=== PATIENT | female | born 1945 | race Caucasian/White ===

== ENCOUNTER 2018-06-27 17:57 | Outpatient (REF) | payer MEDICARE, SELFPAY ==
[2018-06-27 21:55] LABS: Anion Gap 8.1 mmol/L (3-11); BUN 19 mg/dL (7-18); CO2 27.9 mmol/L (21.0-32.0); CREATININE 1.09 mg/dL (0.55-1.02); Calcium 9.1 mg/dL (8.5-10.1); Chloride 105 mmol/L (98-107); Cholesterol 293 mg/dL (50-200); Estimated GFR 49.48 (mL/min/1.73m2); Glucose 92 mg/dL (70-100); HDL Cholesterol 44 mg/dL (40-60); LDL CHOLESTEROL 201 mg/dL (<100); Sodium 141 mmol/L (136-145); Triglyceride 256 mg/dL (30-150)
== END 2018-06-27 18:17 ==
LOC: NCHCN 17:57
PROVIDERS: PCP Family Medicine; Visit Provider Family Medicine
DX: R78.5 Finding of other psychotropic drug in blood (principal)
CPT/HCPCS: 80048; 80061; 83721

== ENCOUNTER 2018-08-01 15:54 | Outpatient (REF) | payer MEDICARE, SELFPAY ==
[2018-08-01 23:00] LABS: ALT 26 U/L (12-78); AST 13 U/L (15-37); Albumin 4.1 g/dL (3.4-5.0); Alkaline Phosphatase 87 U/L (46-116); Anion Gap 8.8 mmol/L (3-11); BUN 19 mg/dL (7-18); Bilirubin, Total 0.3 mg/dL (0.2-1.0); CO2 29.2 mmol/L (21.0-32.0); CREATININE 0.87 mg/dL (0.55-1.02); Calcium 9.2 mg/dL (8.5-10.1); Chloride 103 mmol/L (98-107); Glucose 93 mg/dL (70-100); Potassium 4.1 mmol/L (3.5-5.1); Sodium 141 mmol/L (136-145); Total Protein 7.1 g/dL (6.4-8.2)
== END 2018-08-01 16:14 ==
LOC: NCHCN 15:54
PROVIDERS: PCP Family Medicine; Visit Provider Family Medicine
DX: E78.5 Hyperlipidemia, unspecified (principal); E66.9 Obesity, unspecified
CPT/HCPCS: 80053

== ENCOUNTER 2019-03-14 10:31 | Outpatient (REF) | payer MEDICARE, SELFPAY ==
[2019-03-14 20:21] LABS: Calculated LDL 121 mg/dL; Cholesterol 184 mg/dL (50-200); HDL Cholesterol 42 mg/dL (40-60); Triglyceride 106 mg/dL (30-150)
== END 2019-03-14 10:51 ==
LOC: NCHCN 10:31
PROVIDERS: PCP Family Medicine; Visit Provider Internal Medicine
DX: E78.5 Hyperlipidemia, unspecified (principal)
CPT/HCPCS: 80061

== ENCOUNTER 2020-07-03 17:51 | Outpatient (REF) | payer MEDICARE, SELFPAY ==
[2020-07-03 20:59] LABS: Abs Immature Grans 0.02 10^3/uL (0.0-0.06); Absolute Basophil Count 0.06 10^3/uL (0.0-0.2); Absolute Eosinophil Count 0.08 10^3/uL (0.0-0.7); Absolute Lymphocyte Count 1.31 10^3/uL (1.2-3.4); Absolute Monocyte Count 0.56 10^3/uL (0.1-0.8); Absolute Neutrophil Count 3.82 10^3/uL (1.2-6.7); Eosinophils % 1.4; HCT 45.3 % (36.0-46.0); HGB 15.1 g/dL (11.2-15.7); Immature Grans % 0.3; Lymphocytes % 22.4; MCHC 33.3 % (32.0-36.0); MPV 10.4 fL (8.0-11.0); Monocytes % 9.6; Neutrophils % 65.3; Nucleated RBC 0 %; Platelet Count 328 10^3/uL (130-400); RBC 4.87 10^6/uL (3.93-5.22); RDW 12.7 % (11.7-14.6); RDW-SD 43.3 fL; WBC 5.85 10^3/uL (4.4-10.8)
[2020-07-03 21:16] LABS: Calculated LDL 83 mg/dL (<100); Cholesterol 145 mg/dL (<200); HDL Cholesterol 45 mg/dL (40-60); Triglyceride 87 mg/dL (<150)
[2020-07-03 21:17] LABS: ALT 37 U/L (14-59); AST 20 U/L (15-37); Albumin 4.4 g/dL (3.4-5.0); Alkaline Phosphatase 79 U/L (46-116); Anion Gap 12.6 mmol/L (3-11); BUN 6 mg/dL (7-18); Bilirubin, Total 0.3 mg/dL (0.2-1.0); CO2 25.4 mmol/L (21.0-32.0); CREATININE 0.8 mg/dL (0.55-1.02); Calcium 9.6 mg/dL (8.5-10.1); Chloride 104 mmol/L (98-107); Glucose 91 mg/dL (74-106); Potassium 4.4 mmol/L (3.5-5.1); Sodium 142 mmol/L (136-145); Total Protein 7.3 g/dL (6.4-8.2)
== END 2020-07-03 17:52 | disposition home or self-care (01) ==
LOC: NCHCN 17:51
PROVIDERS: Internal Medicine Cardiovascular Disease; PCP Family Medicine; Visit Provider Internal Medicine
DX: E78.01 Familial hypercholesterolemia (principal); R07.0 Pain in throat
CPT/HCPCS: 80053; 80061; 85025

== ENCOUNTER 2022-08-03 16:15 | Outpatient (REF) | payer MEDICARE, SELFPAY ==
[2022-08-04 00:24] LABS: Magnesium 2.2 mg/dL (1.8-2.4)
[2022-08-04 12:39] LABS: Anion Gap 12.3 mmol/L (3-11); BUN 19 mg/dL (7-18); CO2 23.7 mmol/L (21.0-32.0); CREATININE 0.7 mg/dL (0.55-1.02); Calcium 9.8 mg/dL (8.5-10.1); Chloride 106 mmol/L (98-107); Estimated GFR 90.14 (mL/min/1.73m2); Glucose 116 mg/dL (74-106); Potassium 4.4 mmol/L (3.5-5.1); Sodium 142 mmol/L (136-145)
== END 2022-08-03 16:16 | disposition home or self-care (01) ==
LOC: NCHCN 16:15
PROVIDERS: PCP Family Medicine; Visit Provider Internal Medicine
DX: R25.2 Cramp and spasm (principal); M85.88 Other specified disorders of bone density and structure, other site; E66.8 Other obesity
CPT/HCPCS: 80048; 83735

== ENCOUNTER 2023-01-03 12:36 | Outpatient (REF) | payer MEDICARE, SELFPAY ==
[2023-01-03 14:45] LABS: Vitamin D 25 Total 24.4 ng/mL (30-100)
== END 2023-01-03 12:37 | disposition home or self-care (01) ==
LOC: NCHCN 12:36
PROVIDERS: PCP Family Medicine; Visit Provider Internal Medicine
DX: M81.0 Age-related osteoporosis without current pathological fracture (principal)
CPT/HCPCS: 82306

== ENCOUNTER 2023-02-17 11:20 | Outpatient (REF) | payer MEDICARE, SELFPAY ==
--- NOTE | 2023-02-17 10:00 | PAPFT_PTH ---
PATIENT: Kaitlin Morales LOC: [facility]#:[id number] AGE/SX: 77/F ROOM: RE02/17/[address]: Lynne Faria : 1945 BED: DIS: 02/17/2023 SPEC #: [id number] RECD: 02/21/23 15:38 STATUS: PEDRITO REQ #: [id number] GAYLE: 02/17/23 10:[address]: Lynne Faria DEPT: [facility] Cytology RECD BY: Li Arroyo ENTERED: 02/21/23 15:39 SP TYPE: PAPFT OTHR DR: Maura Agustin Tissues: 1 - CX/ENDOCX FOR PAP SMEARS Procedures: PAP THIN PREP/[facility] Screening HPV DNA PROBE Comments: [id number]
== END 2023-02-17 11:21 | disposition home or self-care (01) ==
LOC: NCHCN 11:20
PROVIDERS: PCP Family Medicine; Visit Provider Internal Medicine
DX: Z12.4 Encounter for screening for malignant neoplasm of cervix (principal); Z11.51 Encounter for screening for human papillomavirus (HPV); Z01.419 Encounter for gynecological examination (general) (routine) without abnormal findings
CPT/HCPCS: 88142; 87624

== ENCOUNTER 2023-03-02 16:44 | Outpatient (REF) | payer MEDICARE, SELFPAY ==
--- NOTE | 2023-03-02 15:00 | ENDOMET_PTH ---
PATIENT: Kaitlin Morales LOC: [facility]#:[id number] AGE/SX: 77/F ROOM: RE03/02/[address]: Maura Agustin : 1945 BED: DIS: 03/02/2023 SPEC #: [id number] RECD: 03/03/23 11:18 STATUS: PEDRITO REQ #: [id number] GAYLE: 03/02/23 15:[address]: Maura Agustin DEPT: Surgical Specimen RECD BY: Alejandra King Tissues: 1 - ENDOMETRIUM BX/BAM Procedures: GROSS AND MICRO LEVEL 4 Comments: [id number]
== END 2023-03-02 16:45 | disposition home or self-care (01) ==
LOC: NCHCN 16:44
PROVIDERS: PCP Family Medicine; Visit Provider Family Medicine
DX: N85.8 Other specified noninflammatory disorders of uterus (principal)
CPT/HCPCS: 88305

== ENCOUNTER 2024-08-08 14:33 | Outpatient (REF) | payer MEDICARE, SELFPAY ==
[2024-08-08 15:50] LABS: ALT 30 U/L (14-59); AST 22 U/L (15-37); Alkaline Phosphatase 79 U/L (46-116); Bilirubin, Total 0.4 mg/dL (0.2-1.0); Calculated LDL 69 mg/dL (<100); Cholesterol 148 mg/dL (<200); Glucose 124 mg/dL (74-106); HDL Cholesterol 50 mg/dL (>or=50); Total Protein 7.4 g/dL (6.4-8.2); Triglyceride 145 mg/dL (<150); Vitamin D 25 Total 30 ng/mL (30-100)
[2024-08-08 16:06] LABS: Bilirubin, Direct 0.1 mg/dL (0.0-0.2)
== END 2024-08-08 14:34 | disposition home or self-care (01) ==
LOC: NCHCN 14:33
PROVIDERS: PCP Family Medicine; Visit Provider Internal Medicine
DX: K76.0 Fatty (change of) liver, not elsewhere classified (principal); M81.0 Age-related osteoporosis without current pathological fracture; Z13.1 Encounter for screening for diabetes mellitus; E78.5 Hyperlipidemia, unspecified
CPT/HCPCS: 80061; 80076; 82306; 82947